=== PATIENT | male | born 1990 | race Two or more races ===

== ENCOUNTER 2017-07-27 11:08 | Emergency (ER) | payer OTHER ==
[2017-07-27] MEDS ORDERED: TDAP ADULT 0.5 ML INJ (BOOSTRIX) IM ONE (11:24)
[2017-07-27 11:26] VITALS: RESP 16
--- NOTE | 2017-07-27 12:19 | EDPHY ---
H & P Time Seen by Provider: 07/27/17 11:31 HPI/ROS: CHIEF COMPLAINT: Thumb laceration HISTORY OF PRESENT ILLNESS: 26-year-old male was at work today when he lacerated his left thumb with a knife. Accident occurred just prior to presentation. Bleeding was controlled with a bandage. No other injury. Patient was otherwise well prior to the event. REVIEW OF SYSTEMS: Aside from elements discussed in the HPI, a comprehensive 10-point review of systems was reviewed and is negative. PAST MEDICAL HISTORY: Patient denies. SOCIAL HISTORY: Nonsmoker. GENERAL APPEARANCE: Pleasant gentleman, no acute distress. FOCUSED EXAM OF left upper extremity: Patient has a 2 cm laceration over the dorsal aspect, proximal phalanx, left thumb. Distal neurovascularly intact. Normal two-point sensation. Normal flexion extension at the IP joint. Neurovascular exam: Good capillary refill, normal motor exam, normal neurologic exam. Smoking Status: Never smoked Constitutional: Initial Vital Signs Temperature (C) 36.4 C 07/27/17 11:19 Heart Rate 71 07/27/17 11:19 Respiratory Rate 16 07/27/17 11:19 Blood Pressure 143/95 H 07/27/17 11:19 O2 Sat (%) 97 07/27/17 11:19 O2 Delivery Mode Room Air Allergies/Adverse Reactions: No Known Allergies Allergy (Unverified 07/27/17 11:19) Home Medications: Medication Instructions Recorded NK [No Known Home Meds] 07/27/17 MDM/Departure - MDM Medications Given: Discontinued Medications Diphtheria/Tetanus/Acell Pertussis (Boostrix) 0.5 ml IM .ONCE ONE Stop: 07/27/17 11:25 Last Admin: 07/27/17 11:32 Dose: 0.5 ml Ibuprofen (Motrin) 600 mg PO EDNOW ONE Stop: 07/27/17 12:37 Last Admin: 07/27/17 12:37 Dose: 600 mg ED Course/Re-evaluation: Procedure: Laceration repair. The 2 cm laceration on the left thumb was anesthetized using Marcaine without epinephrine. The wound was cleaned and irrigated per nursing and tech documentation. Laceration was then draped and explored. There were no deep structures involved. No tendon injury was identified. The wound was repaired with 5 0 Ethilon, simple interrupted sutures. The wound repair was simple. The procedure was performed by myself. Patient is aware the laceration will have a scar. Patient tolerated the procedure well. Wound was bandaged. Patient was given instructions regarding working only with a bandaged hand for the next 48 hr, no lifting weights heavier than 25 lb for the next 3 days, and suture removal in 10 days. Differential Diagnosis: Differential diagnosis for the patient's injury was considered including but not limited to contusion, abrasion, laceration, fracture, open fracture, or dislocation. - Depart Disposition: Home, Routine, Self-Care Clinical Impression: Laceration Condition: Good Instructions: Care For Your Stitches (ED), Laceration (ED) Additional Instructions: Wear a bulky dressing for the next 48 hr. Limited use of the hand for the next 48 hr. No lifting anything greater than 25 lb for the next 3 days. Keep wound clean and dry. Clean suture line with a mixture of hydrogen peroxide and water. Apply a thin layer of antibiotic cream. Dress wound if desired. Suture removal in 10-12 days. Watch for signs of infection. No soaking wound in water. Showers are ok. No swimming until sutures are removed. Use Tylenol or ibuprofen as needed for pain. Return to emergency department if any concerns regarding infection. Stand Alone Forms: Work Comp Follow Up Referrals: NONE *PRIMARY CARE P,. [Primary Care Provider] - As per Instructions
[2017-07-27 12:33] VITALS: BP 129/83; PULSE 78; TEMP 97.7; O2SAT 95
[2017-07-27] MEDS ORDERED: IBUPROFEN 600 MG TAB PO ONE ×2 (12:35→12:36)
== END 2017-07-27 12:40 | disposition home or self-care (01) ==
LOC: CED 11:08
PROC: 0HQGXZZ Repair Left Hand Skin, External Approach (ICD-10-PCS; principal; 2017-07-27)
PROC: 3E00X4Z Introduction of Serum, Toxoid and Vaccine into Skin and Mucous Membranes, External Approach (ICD-10-PCS; 2017-07-27)
DX: S61.012A Laceration without foreign body of left thumb without damage to nail, initial encounter (principal); Z23 Encounter for immunization; W26.0XXA Contact with knife, initial encounter; Y92.69 Other specified industrial and construction area as the place of occurrence of the external cause; Y99.0 Civilian activity done for income or pay; Y93.89 Activity, other specified